=== PATIENT | female | born 1970 | race Hispanic/Latino ===

== ENCOUNTER 2020-08-17 12:25 | Emergency (ER) | payer BC, OTHER ==
[2020-08-17 13:39] LABS: BASOPHILS % (AUTO) 0.3 % (0.0-5.0); EOSINOPHILS % (AUTO) 0.5 % (0.0-8.0); HEMATOCRIT 39.6 % (36-48); LYMPHOCYTES % (AUTO) 19.9 % (21.0-51.0); MEAN CORPUSCULAR HEMOGLOBIN 29.9 pg (27.0-33.0); MEAN CORPUSCULAR HGB CONC 33.6 g/dL (32.0-36.0); MONOCYTES % (AUTO) 6.5 % (3.0-13.0); NEUTROPHILS % (AUTO) 72.3 % (40.0-77.0); PLATELET COUNT (AUTO) 285 K/uL (130-400); RED BLOOD CELL COUNT(AUTO) 4.45 MIL/uL (4.00-5.50); RED CELL DISTRIBUTION WIDTH 12.7 % (11.0-15.5); WHITE BLOOD COUNT (AUTO) 6.6 K/uL (4.8-10.8)
[2020-08-17 14:16] LABS: CREATININE 0.5 mg/dL (0.5-1.5); POTASSIUM 4.2 mmol/L (3.5-5.1)
[2020-08-17 14:21] LABS: ALBUMIN 3.6 g/dL (3.5-5.0); BILIRUBIN,TOTAL 0.5 mg/dL (0.2-1.0); TOTAL PROTEIN, SERUM 7.3 g/dL (6.0-8.3)
[2020-08-17] MEDS ORDERED: NA BORATE/BORIC AC/H2O/NACL 120 ML OPHTH IRRIG SOLN ONE (15:26)
[2020-08-17] MEDS ORDERED: TETRACAINE HCL 0.5% 4 ML OPHTH SOLN ONE (15:26)
[2020-08-17] MEDS ORDERED: FLUORESCEIN SODIUM 1 STRIP STRIP ONE (15:26)
== END 2020-08-17 16:21 | disposition home or self-care (01) ==
LOC: EDH 12:25
DX: S00.83XA Contusion of other part of head, initial encounter (principal); H53.2 Diplopia; E11.40 Type 2 diabetes mellitus with diabetic neuropathy, unspecified; I10 Essential (primary) hypertension; W22.8XXA Striking against or struck by other objects, initial encounter; Y93.89 Activity, other specified; Y92.89 Other specified places as the place of occurrence of the external cause; Y99.8 Other external cause status
CPT/HCPCS: 36415; 70450; 80053; 85025

== ENCOUNTER 2024-06-30 19:48 | Emergency (ER) | payer BC ==
[~2024-06-30] VITALS: Ht 149.9 cm; Wt 59.0 kg
--- NOTE | 2024-06-30 20:48 | NUR ---
PT CARE ASSUMED AT THIS TIME
[2024-06-30] MEDS ORDERED: SULF1TAB42 PO (22:52)
--- NOTE | 2024-06-30 22:53 | ERN ---
General Chief Complaint: Abscess Stated Complaint: SWELLING LABIA Time Seen by MD: 20:01 Time Seen by Midlevel: 20:01 Source: patient History of Present Illness Initial Comments Patient is a 53-year-old female with no significant past medical history presenting to the emergency department with a possible abscess to her left labia area. She states this started approximately a few days ago but has progressively worsened. Denies any fevers, chills, or any other symptoms at this time. Pain is rated eight on a 0-10 scale. Denies any drainage from the area. Allergies: Coded Allergies: No Known Allergies (Unverified Allergy, Unknown, 08/17/20) Home Meds Active Scripts Sulfamethoxazole/Trimethoprim (Bactrim Ds Tablet) 800 Mg-160 Mg Tablet, 1 TAB PO BID for 7 Days, #14 TAB 0 Refills Prov:ALEXUS VALLADARES 06/30/24 Past Medical History Past Medical History: No Pertinent History Past Surgical History: ROS Dictation CONSTITUTIONAL: Negative except for HPI HEAD/FACE: Negative except for HPI EENT: Negative except for HPI RESPIRATORY: Negative except for HPI GASTROINTESTINAL/ABDOMINAL: Negative except for HPI GENITOURINARY: Negative except for HPI MUSCULOSKELETAL: Negative except for HPI INTEGUMENTARY: Negative except for HPI NEUROLOGICAL/PSYCH: Negative except for HPI HEMATOLOGIC/LYMPHATIC: Negative except for HPI All Systems Negative, Except as noted above. 13 point review of systems assessed and all negative except for above. Physical Exam Physical Exam Dictation Vital Signs reviewed General Appearance: Alert, oriented x 3, no acute distress, well developed, nourished. Head and Face: non-traumatic. Eyes: PERRL, pink conjunctivas, eyelid no trauma, anterior chamber with arcus senilis. Ears: Pinnas intact and no signs of trauma or erythema ear canals clear and no discharge TM no erythema Nose: No discharge, no bleeding. Oropharynx: Mouth normal, tongue pink, pharynx clear,no erythema, tonsils no exudates, no abscesses noted, mucous membrane moist Neck: Supple, non-tender, no thyromegaly, no masses, no JVD, no bruits Breast:Deferred Chest:No tenderness, no crepitus, no paradoxical movement, no retractions Lungs:Clear, well-ventilated, symmetric, no rales, no wheezing, no rhonchi, no stridor, good breath sounds bilaterally Heart: Regular rate, regular rhythm, no murmur, no gallops Vascular: no peripheral edema, Abdomen: Soft, positive bowel sounds, nondistended, no guarding, nontender, no rebound, no masses no hepatomegaly, no splenomegaly, no [place]'s sign, no hernias. Rectal: Deferred Genital: External pelvic examination was performed with RN at bedside, the patient has an abscess to the left labia area with surrounding erythema Neurological: Normal speech, motor function intact, sensory function intact Musculoskeletal: Neck nontender, full range of motion, back nontender, full range of motion, Extremities: nontender, full range of motion Skin: Color pink, dry, no turgor, no rash, no lacerations, no abrasions, no contusions. Lymphatic: Deferred MDM MDM: Patient is a 53-year-old female with no significant past medical history presenting to the emergency department with a possible abscess to her left labia area. She states this started approximately a few days ago but has progressively worsened. Denies any fevers, chills, or any other symptoms at this time. Pain is rated eight on a 0-10 scale. Denies any drainage from the area. On arrival initial vital signs are stable. Patient is afebrile and nontoxic appearing. Pelvic examination was performed with RN at bedside. There is a 2 x 2 cm abscess to the left labia region with surrounding erythema. Abscess was drained in the emergency department with no complications. See procedure note for more information. Patient was given antibiotics in the emergency department and will discharged home with a prescription for Bactrim. Strict return precautions were given. The abscess was packed and patient was advised to return to ER in two days for packing removed. Differential diagnosis: Abscess, cellulitis, Bartholin gland cyst There are no social concerns with this patient. Prescription drug management Prescriptions will include: Bactrim Medical management and examination interpretation discussions were had by me with other qualified healthcare professionals as indicated for the patient's care. ED Course Orders Procedure Category Date Status Time Ceftriaxone 1g Vial PHA 06/30/24 Complete (Rocephine 1g Inj) 22:30 Current Medications Medications (Trade) Dose Ordered Sig/Aaron Route PRN Reason Start Time Stop Time Status Last Admin Dose Admin Ceftriaxone Sodium (ROCEphine 1G INJ) 1 gm ONCE ONCE IM 06/30/24 22:30 06/30/24 22:31 DC 06/30/24 23:00 Vital Signs Date Time Temp Pulse Resp B/P (MAP) Pulse Ox O2 Delivery O2 Flow Rate FiO2 06/30/24 23:14 97.9 70 16 142/88 96 Room Air* 0 21 06/30/24 22:04 97.9 75 17 180/78 96 Room Air* 0 21 06/30/24 20:58 97.9 77 18 189/100 96 Room Air* 0 21 06/30/24 19:49 97.9 82 20 169/98 97 Room Air Procedure Dictation Performed by: Alexus Valladares PA-C Authorized by: Patient Consent: Verbal consent obtained. Risks and benefits: Risks, benefits, and alternatives were discussed Consent given by: Patient Patient understanding: patient states understanding of the procedure being performed Patient consent: the patient's understanding of the procedure matches consent given Patient identity confirmed: arm band Time out: Immediately prior to procedure a "time out" was called to verify the correct patient, procedure, equipment, support group manager and site/side marked as required. Type: abscess Location details: left labia Anesthesia: local infiltration Local anesthetic: lidocaine 1% without epinephrine Anesthetic total: 15 ml Patient sedated: no Scalpel size: 11 Incision type: single straight Complexity: simple Drainage: purulent Drainage amount: moderate Wound treatment: packed Packing material: iodaform Patient tolerance: Patient tolerated the procedure well with no immediate co mplications. DX & DISP Disposition: Discharge Departure Impression: Primary Impression: Left genital labial abscess Condition: Stable Scripts Sulfamethoxazole/Trimethoprim (Bactrim Ds Tablet) 800 Mg-160 Mg Tablet 1 TAB PO BID for 7 Days, #14 TAB 0 Refills Prov: ALEXUS VALLADARES 06/30/24 Additional Instructions: Your physical examination is consistent with an abscess. The abscess was drained in the emergency department and a packing was placed. The packing will need to be removed in two days. You may follow up with your primary care doctor return to the ER for packing removal. I have started you on an oral antibiotic for outpatient management. If you develop any fever, chills, or any other symptoms at this time please repo rt to the ER for further evaluation. Referrals: JAZIEL CREWS MD (PCP) Time of Disposition: 22:52 I have reviewed the case, and I agree with, Diagnosis and Plan I performed the substantive portion of the visit. I have reviewed and personally made and approve the management plan that is documented in the note by myself or the JUAN ANTONIO. I acknowledge for responsibility for the patient's management plan. ALEXUS VALLADARES Jun 30, 2024 22:53
[2024-06-30] MEDS: cefTRIAXone 1G VIAL IM ONE (23:00)
[2024-06-30 23:14] VITALS: BP 142/88; PULSE 70; RESP 16; TEMP 97.8; O2SAT 96
== END 2024-06-30 23:16 | disposition home or self-care (01) ==
LOC: EDH 19:48
DX: N76.4 Abscess of vulva (principal); Z79.899 Other long term (current) drug therapy
CPT/HCPCS: 99284; 96372; J0696